=== PATIENT | female | born 1980 ===

== ENCOUNTER 2017-03-06 19:48 | Emergency (ER) | payer BC ==
[2017-03-06 19:49] VITALS: BMI 28.6
[2017-03-06 19:57] VITALS: BP 131/64; PULSE 86; RESP 16; TEMP 98.6; O2SAT 100
--- NOTE | 2017-03-06 20:41 | ED PDOC ---
HPI: Female Pain Time Seen by Provider: 03/06/17 19:58 Chief Complaint (Nursing): Female Genitourinary Chief Complaint (Provider): Vaginal Bleeding History Per: Patient History/Exam Limitations: no limitations Onset/Duration Of Symptoms: Hrs (2 hours prior to arrival) Current Symptoms Are (Timing): Still Present Severity: Moderate Quality Of Discomfort: Cramping Associated Symptoms: Other (lower abdominal pain). denies: Fever, Nausea, Vomiting Additional Complaint(s): Leigh Ann Dominguez is a 36 year old female, with no pertinent past medical history, who presents to the emergency department for the evaluation of vaginal bleeding, that the patient began experiencing 2 hours prior to arrival. Patient reports that she first noticed clear red blood when going to the bathroom. Associated lower abdominal cramping is persistent with the vaginal bleeding. Denies a fever, nausea, or vomiting. Of note, patient is , P:2. PMD: Tania Singh Abnormal Vaginal Bleeding: Yes : 4 Para: 2 Past Medical History Reviewed: Historical Data, Nursing Documentation, Vital Signs Vital Signs: Last Vital Signs Temp 98.6 F 03/06/17 19:54 Pulse 86 03/06/17 19:54 Resp 16 03/06/17 19:54 BP 131/64 03/06/17 19:54 Pulse Ox 100 03/06/17 19:54 - Medical History PMH: No Chronic Diseases - Surgical History Surgical History: No Surg Hx - Family History Family History: States: No Known Family Hx - Home Medications Home Medications: Ambulatory Orders Medication Instructions Recorded Acetaminophen [8 Hour Pain Relief] 650 mg PO Q4 #30 tablet.er 03/06/17 - Allergies Allergies/Adverse Reactions: Allergies Allergy/AdvReac Type Severity Reaction Status Date / Time No Known Allergies Allergy Verified 07/03/14 21:44 Review of Systems ROS Statement: Except As Marked, All Systems Reviewed And Found Negative Constitutional: Negative for: Fever Gastrointestinal: Positive for: Abdominal Pain. Negative for: Nausea, Vomiting Genitourinary Female: Positive for: Vaginal Bleeding Physical Exam - Reviewed Nursing Documentation Reviewed: Yes Vital Signs Reviewed: Yes - Physical Exam Appears: Positive for: Well, Non-toxic, No Acute Distress Head Exam: Positive for: ATRAUMATIC, NORMOCEPHALIC Skin: Positive for: Normal Color, Warm, Dry Cardiovascular/Chest: Positive for: Regular Rate, Rhythm. Negative for: Murmur Respiratory: Positive for: Normal Breath Sounds. Negative for: Respiratory Distress Gastrointestinal/Abdominal: Positive for: Normal Exam, Soft. Negative for: Tenderness Pelvic Exam: Positive for: External Exam Normal, No Cerv. 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 Negative for: Speculum Exam Normal (scant vaginal bleeding) Neurologic/Psych: Positive for: Alert, Oriented - Laboratory Results Result Diagrams: 03/06/17 20:50 03/06/17 20:50 - ECG O2 Sat by Pulse Oximetry: 100 (RA) Pulse Ox Interpretation: Normal Medical Decision Making Medical Decision Makin:58 Initial Impression: Threatened Initial Plan: * OB Preg 1st Tri & OB Transvaginal US * OB Transvaginal US * Type and Screen * CBC * BMP * Beta-HCG Quantitative * Urinalysis * Reevaluation 1015PM: IMPRESSION: 1. Findings compatible with demise. 2. RIGHT ovarian cyst. 3. Incidental/non-acute findings are described above Spoke with Dr. Vincent who recommends outpatient f/u in clinic or with patient' s OB. Patient informed of results, copy of u/s given, expectations (bleeding, cramping, etc.) explained to patient as well as importance of f/u in 2-[address] Singh, patient's own OB. Return precautions given and questions answered. Scribe Attestation: Documented by Didier Salmeron, acting as a scribe for Christian Almeida MD. Provider Scribe Attestation: All medical record entries made by the Scribe were at my direction and personally dictated by me. I have reviewed the chart and agree that the record accurately reflects my personal performance of the history, physical exam, medical decision making, and the department course for this patient. I have also personally directed, reviewed, and agree with the discharge instructions and disposition. Disposition - Clinical Impression Clinical Impression: Missed - Patient ED Disposition Is Patient to be Admitted: No - Disposition Disposition: Routine/Home Disposition Time: 22:24 Condition: STABLE Prescriptions: Acetaminophen [8 Hour Pain Relief] 650 mg PO Q4 #30 tablet.er Instructions: Spontaneous Miscarriage (ED) Print Language: TELUGU
[2017-03-06 21:06] LABS: BASO # 0.1 K/uL (0.0-0.2); BASO % 0.6 % (0.0-2.0); EOS # 0.4 K/uL (0.0-0.7); EOS % 3.1 % (0.0-4.0); HEMATOCRIT 36.7 % (34.0-47.0); LYMPH # 3.7 K/uL (1.0-4.3); LYMPH % 29.1 % (20.0-40.0); MEAN CELL VOLUME 86.6 fl (81.0-99.0); MEAN CORPUSCULAR HEMOGLOBIN 28.3 pg (27.0-31.0); MEAN CORPUSCULAR HGB CONC 32.7 g/dL (33.0-37.0); MEAN PLATELET VOLUME 7.9 fl (7.2-11.7); MONO # 0.8 K/uL (0.0-0.8); MONO % 5.9 % (0.0-10.0); NEUT # 7.8 K/uL (1.8-7.0); NEUT % 61.3 % (50.0-75.0); NRBC % 0.1 % (0.0-0.0); RED CELL DISTRIBUTION WIDTH 14.2 % (11.5-14.5); WHITE BLOOD COUNT 12.8 K/uL (4.8-10.8)
[2017-03-06 21:33] LABS: BLOOD UREA NITROGEN 10 mg/dl (7-17); CALCIUM 9.4 mg/dL (8.4-10.2); CARBON DIOXIDE 27 mmol/L (22-30); CHLORIDE 103 mmol/L (98-107); GFR AFRICAN-AMERICAN > 60; GLUCOSE,RANDOM 98 mg/dL (65-105); POTASSIUM 3.6 MMOL/L (3.6-5.0); SODIUM 139 mmol/l (132-148)
[2017-03-06 21:36] LABS: RBC URINE 2 /hpf (0-3); URINE BILIRUBIN NEGATIVE (NEGATIVE); URINE BLOOD NEGATIVE (NEGATIVE); URINE COLOR STRAW (YELLOW); URINE GLUCOSE (UA) >=500 mg/dL (Normal); URINE KETONE TRACE mg/dL (NEGATIVE); URINE LEUKOCYTE ESTERASE NEG Leu/uL (Negative); URINE PROTEIN NEGATIVE (NEGATIVE); URINE UROBILINOGEN 0.2-1.0 mg/dL (0.2-1.0); WBC URINE 1 /hpf (0-5)
--- NOTE | 2017-03-06 22:08 | US ---
EXAM: US , Transvaginal CLINICAL HISTORY: 36 years old, female; Signs and symptoms; Lmp or gestational age (in weeks): 11/30/16; Antepartum complications; Other: Spotting; ; Additional info: 10wks preg, vb TECHNIQUE: Real-time transvaginal obstetrical ultrasound of the maternal pelvis and a first trimester with image documentation. Transvaginal imaging was used for better evaluation of the fetus and adnexa. COMPARISON: No relevant prior studies available. FINDINGS: Gestation: Intrauterine gestation. No heartbeat detected. [place]-rump length of 0.85 cm, correlating with gestational age of 6 weeks 6 days. Mean sac diameter of 3.11 cm, correlating with gestational age of 8 weeks 0 days. Uterus/cervix: No subchorionic hemorrhage. No cervical dilatation or effacement. Ovaries: RIGHT ovary: 2.6 x 2.5 x 2.1 cm anechoic lesion. LEFT ovary: Not visualized. No adnexal masses. Free fluid: No significant free fluid. IMPRESSION: 1. Findings compatible with demise. 2. RIGHT ovarian cyst. 3. Incidental/non-acute findings are described above.
== END 2017-03-06 22:31 | disposition home or self-care (01) ==
LOC: H.ER 19:48
DX: O02.1 Missed abortion (principal); N83.201 Unspecified ovarian cyst, right side

== ENCOUNTER 2017-03-09 13:07 | Emergency (ER) | payer BC ==
[2017-03-09 13:07] VITALS: BMI 28.6
[2017-03-09 13:23] VITALS: BP 111/75; PULSE 78; RESP 20; TEMP 98.3; O2SAT 99
--- NOTE | 2017-03-09 14:51 | ED PDOC ---
HPI: Female Pain Time Seen by Provider: 03/09/17 14:25 Chief Complaint (Nursing): Female Genitourinary Chief Complaint (Provider): Vaginal Bleeding History Per: Patient History/Exam Limitations: no limitations Onset/Duration Of Symptoms: Days (3 days), Persistent Current Symptoms Are (Timing): Still Present Severity: Moderate Pain Scale Rating Of: 7 Associated Symptoms: Other (pelvic pain, mild fatigue; denies syncope) Additional Complaint(s): Leigh Ann Dominguez is a 36 year old female, with no pertinent past medical history, who presents to the emergency department for the evaluation of persistent vaginal bleeding after being diagnosed with a missed on 03/06. Patient notes pelvic discomfort and bleeding which she is using 8 pads per day for. Associated mild fatigue is currently present. Denies syncope. PMD: Tania Singh Abnormal Vaginal Bleeding: Yes : 4 Para: 2 Past Medical History Reviewed: Historical Data, Nursing Documentation, Vital Signs Vital Signs: Last Vital Signs Temp 98.3 F 03/09/17 13:20 Pulse 78 03/09/17 13:20 Resp 20 03/09/17 13:20 BP 111/75 03/09/17 13:20 Pulse Ox 99 03/09/17 13:20 - Medical History PMH: No Chronic Diseases - Surgical History Surgical History: Appendectomy, - Family History Family History: States: No Known Family Hx - Social History Current smoker - smoking cessation education provided: No Ex-Smoker (has not smoked in the last 12 months): No Alcohol: None Drugs: Denies - Home Medications Home Medications: Ambulatory Orders Medication Instructions Recorded Acetaminophen [8 Hour Pain Relief] 650 mg PO Q4 #30 tablet.er 03/06/17 - Allergies Allergies/Adverse Reactions: Allergies Allergy/AdvReac Type Severity Reaction Status Date / Time No Known Allergies Allergy Verified 03/09/17 13:20 Review of Systems ROS Statement: Except As Marked, All Systems Reviewed And Found Negative Genitourinary Female: Positive for: Vaginal Bleeding, Pelvic Pain Neurological: Positive for: Other (mild fatigue; denies syncope) Physical Exam - Reviewed Nursing Documentation Reviewed: Yes Vital Signs Reviewed: Yes - Physical Exam Appears: Positive for: Non-toxic, No Acute Distress Head Exam: Positive for: ATRAUMATIC, NORMOCEPHALIC Skin: Positive for: Normal Color, Warm, Dry Cardiovascular/Chest: Positive for: Regular Rate, Rhythm. Negative for: Murmur Respiratory: Positive for: Normal Breath Sounds. Negative for: Respiratory Distress Gastrointestinal/Abdominal: Positive for: Normal Exam, Soft, Tenderness (mild suprapubic tenderness) Back: Positive for: Normal Inspection. Negative for: L CVA Tenderness, R CVA Tenderness Neurologic/Psych: Positive for: Alert, Oriented - ECG O2 Sat by Pulse Oximetry: 99 (RA) Pulse Ox Interpretation: Normal Medical Decision Making Medical Decision Makin:25 Initial Impression: Incomplete , old chart from 03/06/2017 was reviewed. Initial Plan: * OB Transvaginal US * Transvaginal US * CBC * BMP * Beta-HCG Quantitative * Reevaluation Scribe Attestation: Documented by Didier Salmeron, acting as a scribe for Yovani Langston III, MD. Provider Scribe Attestation: All medical record entries made by the Scribe were at my direction and personally dictated by me. I have reviewed the chart and agree that the record accurately reflects my personal performance of the history, physical exam, medical decision making, and the department course for this patient. I have also personally directed, reviewed, and agree with the discharge instructions and disposition.
[2017-03-09 15:04] LABS: BASO # 0.1 K/uL (0.0-0.2); BASO % 0.5 % (0.0-2.0); EOS # 0.3 K/uL (0.0-0.7); EOS % 1.7 % (0.0-4.0); HEMATOCRIT 38.3 % (34.0-47.0); LYMPH # 3.2 K/uL (1.0-4.3); LYMPH % 21.3 % (20.0-40.0); MEAN CELL VOLUME 87.4 fl (81.0-99.0); MEAN CORPUSCULAR HEMOGLOBIN 27.9 pg (27.0-31.0); MONO # 0.8 K/uL (0.0-0.8); MONO % 5.4 % (0.0-10.0); NEUT # 10.7 K/uL (1.8-7.0); NEUT % 71.1 % (50.0-75.0); RED CELL DISTRIBUTION WIDTH 14.3 % (11.5-14.5)
[2017-03-09 15:17] LABS: BLOOD UREA NITROGEN 12 mg/dl (7-17); CALCIUM 9.5 mg/dL (8.4-10.2); CARBON DIOXIDE 25 mmol/L (22-30); CHLORIDE 103 mmol/L (98-107); GFR AFRICAN-AMERICAN > 60; GLUCOSE,RANDOM 94 mg/dL (65-105); SODIUM 139 mmol/l (132-148)
--- NOTE | 2017-03-09 17:09 | US ---
PROCEDURE: HISTORY: spont COMPARISON: TECHNIQUE: FINDINGS: There is no intrauterine . There is a complex nonvascular structure within the cervix as well as diffuse thickening and heterogeneity of the endometrial canal. There is a cyst in the right ovary measuring 2.8 centimeters. The left ovary is not visualized. There is trace free fluid the pelvis. IMPRESSION: As above.
== END 2017-03-09 16:00 | disposition home or self-care (01) ==
LOC: H.ER 13:07
DX: N93.9 Abnormal uterine and vaginal bleeding, unspecified (principal); R10.2 Pelvic and perineal pain